=== PATIENT | male | born 1985 | race Caucasian/White ===

== ENCOUNTER 2016-05-07 12:51 | Emergency (ER) | payer OTHER ==
[~2016-05-07] VITALS: Ht 177.8 cm; Wt 72.7 kg
[2016-05-07 12:57] VITALS: Ht 177.8 cm; Wt 72.7 kg
[2016-05-07] MEDS ORDERED: SOD CHLORIDE 0.9% 1,000 ML IV STA (13:59)
[2016-05-07 14:42] LABS: ADD UMIC NO; URINE BILIRUBIN (Dip) NEGATIVE (NEGATIVE); URINE BLOOD (Dip) NEGATIVE (NEGATIVE); URINE COLOR LT. YELLOW (YELLOW); URINE GLUCOSE (Dip) NEGATIVE (NEGATIVE); URINE KETONES (Dip) NEGATIVE (NEGATIVE); URINE LEUKOCYTE ESTERASE (Dip) NEGATIVE (NEGATIVE); URINE NITRITE (Dip) NEGATIVE (NEGATIVE); URINE TOTAL PROTEIN (Dip) NEGATIVE (NEGATIVE); URINE UROBILINOGEN (Dip) 0.2 E.U./dL (0.1-1.0)
[2016-05-07 14:51] LABS: ALBUMIN 4.7 g/dl (3.3-4.9); CHLORIDE 98 mmol/L (97-110)
[2016-05-07 14:52] LABS: SODIUM 145 mmol/L (135-144)
[2016-05-07 14:54] LABS: ALBUMIN/GLOBULIN RATIO 1.56; ALKALINE PHOSPHATASE 81 IU/L (42-121); ANION GAP 17 (8-16); ASPARTATE AMINO TRANSFERASE 49 IU/L (15-46); BASOPHIL # 0.1 10^3/ul (0.0-0.1); BASOPHILS % 0.5 % (0.0-2.0); CARBON DIOXIDE 34 mmol/L (21-31); CREATININE 0.66 mg/dl (0.61-1.24); EOSINOPHILS # 0.5 10^3/ul (0.0-0.5); EOSINOPHILS % 3.7 % (0.0-7.0); HEMOGLOBIN 13.2 g/dl (14.0-18.0); LYMPHOCYTES # 2.6 10^3/ul (0.8-2.9); LYMPHOCYTES % 19.3 % (15.0-51.0); MEAN CORPUSCULAR HEMOGLOBIN 28.7 pg (29.0-33.0); MEAN CORPUSCULAR HGB CONC 33.1 g/dl (32.0-37.0); MEAN CORPUSCULAR VOLUME 86.7 fl (82.0-101.0); MEAN PLATELET VOLUME 11.2 fl (7.4-10.4); MONOCYTES % 7.6 % (0.0-11.0); NEUTROPHIL # 9.3 10^3/ul (1.6-7.5); NEUTROPHILS % 68.9 % (39.0-77.0); PLATELET COUNT 132 10^3/UL (140-440); RED BLOOD COUNT 4.61 10^6/ul (4.70-6.10); RED CELL DISTRIBUTION WIDTH 15.5 % (11.5-14.5); TOTAL PROTEIN 7.7 g/dl (6.1-8.1); UNCORRECTED WBC 13.5 10^3/ul (4.8-10.8); WHITE BLOOD COUNT 13.5 10^3/ul (4.8-10.8)
[2016-05-07 14:55] LABS: ALANINE AMINOTRANSFERASE 39 IU/L (13-69); BLOOD UREA NITROGEN 9 mg/dl (7-20); CALCIUM 9.2 mg/dl (8.4-10.2); GLUCOSE 78 mg/dl (70-220)
[2016-05-07 14:59] LABS: CONDITION 1; LH ANALYZER COMMENTS 1
[2016-05-07 15:03] LABS: ACETAMINOPHEN < 10.0 ug/ml (10.0-30.0); ETHANOL < 10.0 mg/dl; OPIATES Negative (NEGATIVE); SALICYLATE < 1.0 mg/dl (5.0-30.0)
[2016-05-07 15:04] LABS: BARBITURATES Negative (NEGATIVE); BENZODIAZEPINES Positive (NEGATIVE); CANNABINOIDS Positive (NEGATIVE); COCAINE Negative (NEGATIVE)
--- NOTE | 2016-05-07 16:43 | ERD ---
ER Documentation Chief Complaint Date/Time DATE: 05/07/16 TIME: 16:37 Chief Complaint aloc HPI This 30-year-old male was brought to the ER because he was found sleeping in a waiting room the other side of the hospital. Securely without a left but he came to sleep in the emergency room waiting room. He had peed himself while sitting there. Patient states that he is tired because he stayed up all night for the methadone clinic but he fell asleep and missed it as they closed at 9: 30 AM. States that he did take Xanax last night but denies drinking alcohol. Says that he is just very tired from being up all night and from the Xanax. He denies any trauma. He says he has no pain currently and he just wants to sleep. ROS All systems reviewed and are negative except as per history of present illness. Medications Home Meds Unable to Obtain Active Prescriptions or Reported Meds Allergies Allergies: Coded Allergies: No Known Allergy (Unverified , 05/07/16) PMhx/Soc Medical and Surgical Hx: pt denies Medical Hx, pt denies Surgical Hx History of Surgery: No Anesthesia Reaction: No Hx Neurological Disorder: No Hx Respiratory Disorders: No Hx Cardiac Disorders: No Hx Psychiatric Problems: No Hx Miscellaneous Medical Probl: No Hx Alcohol Use: No Hx Substance Use: No Hx Tobacco Use: No Smoking Status: Never smoker Physical Exam Vitals Vital Signs Date Time Temp Pulse Resp B/P Pulse Ox O2 Delivery O2 Flow Rate FiO2 05/07/16 12:57 98.1 96 16 118/85 99 Physical Exam Const: [] No distress Head: Atraumatic Eyes: Normal Conjunctiva, EOMI, PERRLA ENT: Normal External Ears, Nose and Mouth. Neck: Full range of motion..~ No meningismus. Resp: Clear to auscultation bilaterally Cardio: Regular rate and rhythm, no murmurs Abd: Soft, non tender, non distended. Normal bowel sounds Skin: No petechiae or rashes Back: No midline or flank tenderness Ext: No cyanosis, or edema Neur: Awake and alert and oriented 3, mildly somnolent, cranial nerves II through XII intact, no cerebellar deficits, normal gait Psych: Normal Mood and Affect Result Diagram: 05/07/16 1431 05/07/16 1431 Results 24 hrs Laboratory Tests Test 05/07/16 14:31 Acetaminophen Level < 10.0ug/ml Alanine Aminotransferase (ALT/SGPT) 39IU/L Albumin 4.7g/dl Albumin/Globulin Ratio 1.56 Alkaline Phosphatase 81IU/L Anion Gap 17 Aspartate Amino Transf (AST/SGOT) 49IU/L Basophils # 0.110^3/ul Basophils % 0.5% Blood Morphology Comment Blood Urea Nitrogen 9mg/dl Calcium Level 9.2mg/dl Carbon Dioxide Level 34mmol/L Chloride Level 98mmol/L Creatinine 0.66mg/dl Direct Bilirubin 0.00mg/dl Eosinophils # 0.510^3/ul Eosinophils % 3.7% Ethyl Alcohol Level < 10.0mg/dl Globulin 3.00g/dl Glucose Level 78mg/dl Hematocrit 40.0% Hemoglobin 13.2g/dl Indirect Bilirubin 0.0mg/dl Lymphocytes # 2.610^3/ul Lymphocytes % 19.3% Mean Corpuscular Hemoglobin 28.7pg Mean Corpuscular Hemoglobin Concent 33.1g/dl Mean Corpuscular Volume 86.7fl Mean Platelet Volume 11.2fl Monocytes # 1.010^3/ul Monocytes % 7.6% Neutrophils # 9.310^3/ul Neutrophils % 68.9% Nucleated Red Blood Cells # 0.010^3/ul Nucleated Red Blood Cells % 0.0/100WBC Platelet Count 48445^3/UL Potassium Level 4.0mmol/L Red Blood Count 4.6110^6/ul Red Cell Distribution Width 15.5% Salicylates Level < 1.0mg/dl Sodium Level 145mmol/L Total Bilirubin 0.0mg/dl Total Protein 7.7g/dl Urine Amphetamines Screen Negative Urine Barbiturates Negative Urine Benzodiazepines Screen Positive Urine Bilirubin NEGATIVE Urine Cannabinoids Positive Urine Clarity CLEAR Urine Cocaine Screen Negative Urine Color LT. YELLOW Urine Glucose NEGATIVE% Urine Hemoglobin NEGATIVE Urine Ketones NEGATIVE Urine Leukocyte Esterase NEGATIVE Urine Nitrite NEGATIVE Urine Opiates Screen Negative Urine Specific [place] 1.010 Urine Total Protein NEGATIVE Urine Urobilinogen 0.2 E.U./dL Urine pH 8.0 White Blood Count 13.510^3/ul Current Medications Medications (Trade) Dose Ordered Sig/Mike Route PRN Reason Start Time Stop Time Status Last Admin Dose Admin Sodium Chloride (NS) 1,000 ml @ 1,000 mls/hr Q1H STAT IV 05/07/16 13:59 05/07/16 14:58 DC 05/07/16 14:33 Procedures/MDM 22-year-old male who is tired and took benzodiazepines last night admitting that he just wants to sleep. No signs of trauma patient denies symptoms. He was allowed to sleep in the emergency room for a few hours. He was hydrated with normal saline and has an elevated CO2 likely secondary to contraction alkalosis. He was taking good p.o. in the emergency room prior to leaving. He has a elevated white blood cell count but has any cough shortness of breath. He does not have urinary tract infection. He denies any fevers and chills and it seems unlikely that he has any acute overwhelming infection. Patient is awake now stating he would like to leave. Going to discharge him and provide for him primary care follow-up. I am also spoke with him about narcotic dependence at the bedside for more than 3 minutes. He agrees that he needs to quit taking drugs. Told him to return to the emergency room if he has any concerning symptoms. Departure Diagnosis: Primary Impression: Altered level of consciousness Additional Impression: Drug abuse Condition: Stable Patient Instructions: Drug Abuse, Opiate Abuse Referrals: COMMUNITY CLINICS YOU HAVE RECEIVED A MEDICAL SCREENING EXAM AND THE RESULTS INDICATE THAT YOU DO NOT HAVE A CONDITION THAT REQUIRES URGENT TREATMENT IN THE EMERGENCY DEPARTMENT. FURTHER EVALUATION AND TREATMENT OF YOUR CONDITION CAN WAIT UNTIL YOU ARE SEEN IN YOUR DOCTORS OFFICE WITHIN THE NEXT 1-2 DAYS. IT IS YOUR RESPONSIBILITY TO MAKE AN APPOINTMENT FOR FOLOW-UP CARE. IF YOU HAVE A PRIMARY DOCTOR --you should call your primary doctor and schedule an appointment IF YOU DO NOT HAVE A PRIMARY DOCTOR YOU CAN CALL OUR PHYSICIAN REFERRAL HOTLINE AT IF YOU CAN NOT AFFORD TO SEE A PHYSICIAN YOU CAN CHOSE FROM THE FOLLOWING REPLACED BY [facility] [address] [facility] [address] [facility] [address] [facility] [address] [facility] [address] [facility]. [facility] [address] [facility] [place]. [facility] YOU HAVE RECEIVED A MEDICAL SCREENING EXAM AND THE RESULTS INDICATE THAT YOU DO NOT HAVE A CONDITION THAT REQUIRES URGENT TREATMENT IN THE EMERGENCY DEPARTMENT. FURTHER EVALUATION AND TREATMENT OF YOUR CONDITION CAN WAIT UNTIL YOU ARE SEEN IN YOUR DOCTORS OFFICE WITHIN THE NEXT 1-2 DAYS. IT IS YOUR RESPONSIBILITY TO MAKE AN APPOINTMENT FOR FOLOW-UP CARE. IF YOU HAVE A PRIMARY DOCTOR --you should call your primary doctor and schedule and appointment IF YOU DO NOT HAVE A PRIMARY DOCTOR YOU CAN CALL OUR PHYSICIAN REFERRAL HOTLINE AT . IF YOU CAN NOT AFFORD TO SEE A PHYSICIAN YOU CAN CHOSE FROM THE FOLLOWING [facility]: [facility] [address] [place] [address] [facility] [address] [place] [address] [facility] [address] [place] [address] Additional Instructions: Call your primary care doctor TOMORROW for an appointment during the next 1-2 days.See the doctor sooner or return here if your condition worsens before your appointment time. CLIFF WATSON DO May 07, 2016 16:43
[2016-05-07 17:15] VITALS: BP 122/78; PULSE 88; RESP 18; TEMP 98.2
== END 2016-05-07 17:10 | disposition home or self-care (01) ==
LOC: E/R 12:51
DX: R40.4 Transient alteration of awareness (principal); F13.10 Sedative, hypnotic or anxiolytic abuse, uncomplicated
CPT/HCPCS: 80053; 80306; 80307; 81003; 85025; 93005; J7030; 36415

== ENCOUNTER 2016-05-08 08:28 | Emergency (ER) | payer OTHER ==
[~2016-05-08] VITALS: Ht 172.7 cm; Wt 68.2 kg
[2016-05-08 08:32] VITALS: Ht 172.7 cm; Wt 68.2 kg
--- NOTE | 2016-05-08 09:09 | ERD ---
ER Documentation Chief Complaint Date/Time DATE: 05/08/16 TIME: 09:04 Chief Complaint BROUGHT IN BY [employer] AND [employer] DUE TO DRUG USE AND WITHDRAWAL HPI 30-year-old male with a history of heroin abuse on methadone, brought to the ED by rescue ambulance from a sober living facility where is found sleeping on the couch. Patient admits to taking Xanax yesterday and was seen in the ED for similar symptoms and denies taking any other medication since discharge yesterday evening. He is easily arousable and vehemently denies suicidal ideations or depression. He essentially needs placement it is raining outside and cannot go to the street. Otherwise asymptomatic. Denies chest pain, abdominal pain, shortness of breath, headache, fevers or chills. ROS All systems reviewed and are negative except as per history of present illness. Medications Home Meds Unable to Obtain Active Prescriptions or Reported Meds Allergies Allergies: Coded Allergies: No Known Allergy (Unverified , 05/07/16) PMhx/Soc Reviewed in chart. As per HPI. History of Surgery: No Anesthesia Reaction: No Hx Neurological Disorder: No Hx Respiratory Disorders: No Hx Cardiac Disorders: No Hx Psychiatric Problems: No Hx Miscellaneous Medical Probl: Yes (Shoulder dislocations) Hx Alcohol Use: Yes Hx Substance Use: Yes Hx Tobacco Use: Yes Smoking Status: Never smoker FmHx Not relevant to presenting complaint Physical Exam Vitals Vital Signs Date Time Temp Pulse Resp B/P Pulse Ox O2 Delivery O2 Flow Rate FiO2 05/08/16 08:32 98.2 90 18 110/78 98 Physical Exam Const: Sleepy but arousable. Poor hygiene Head: Atraumatic Eyes: Normal Conjunctiva ENT: Normal External Ears, Nose and Mouth. Neck: Full range of motion..~ No meningismus. Resp: Clear to auscultation bilaterally Cardio: Regular rate and rhythm, no murmurs Abd: Soft, non tender, non distended. Normal bowel sounds Skin: No petechiae or rashes Back: No midline or flank tenderness Ext: No cyanosis, or edema Neur: Sleepy but arousable. Cranial nerves grossly intact. No focal deficit observed. Psych: Normal Mood and Affect. Denies hallucinations, depression, suicidal homicidal ideations Procedures/MDM DOCUMENTS REVIEWED: ED nurse, prior ED MEDICAL DECISION MAKIN-year-old male with a history of heroin abuse on methadone, brought to the ED by rescue ambulance from a sober living facility where is found sleeping on the couch. Labs and urine toxicology were done yesterday evening and not repeated today. Was positive for opiates, benzodiazepines and cannabinoids. No suicidality or homicidality. Presentation consistent with benzodiazepine ingestion. Patient seen by social work supervisor and placement has been arranged. Alert, oriented, ambulatory with a steady gait is stable for discharge with outpatient follow-up as counseled. Drug cessation counseling given. Counseled patient regarding diagnostic workup, diagnosis and need for followup. Understands to return to ED if symptoms recur, worsen or any other concerns. Departure Diagnosis: Primary Impression: Benzodiazepine abuse Condition: Stable Patient Instructions: Drug Abuse NEAL CORRAL MD May 08, 2016 09:09
[2016-05-08 12:13] VITALS: BP 125/62; PULSE 68; RESP 18
== END 2016-05-08 12:14 | disposition home or self-care (01) ==
LOC: E/R 08:28
DX: F13.10 Sedative, hypnotic or anxiolytic abuse, uncomplicated (principal); R40.2352 Coma scale, best motor response, localizes pain, at arrival to emergency department; R40.2362 Coma scale, best motor response, obeys commands, at arrival to emergency department; R40.2142 Coma scale, eyes open, spontaneous, at arrival to emergency department; Z87.891 Personal history of nicotine dependence
CPT/HCPCS: 99283

== ENCOUNTER 2017-05-16 20:06 | Emergency (ER) | END 2017-05-17 00:08 | disposition home or self-care (01) ==

== ENCOUNTER 2017-09-01 21:20 | Emergency (ER) | END 2017-09-01 23:10 | disposition home or self-care (01) ==